=== PATIENT | male | born 1985 | race Caucasian/White ===

== ENCOUNTER 2021-07-10 21:03 | Emergency (ER) | payer OTHER, SELFPAY ==
[~2021-07-10 21:03] MED LIST: Iopamidol 370 76% 100 ML VIAL ONE
[2021-07-10 21:18] LABS: #Basophils 0.1 thou/uL (0.0-0.2); #Eosinphils 1.3 thou/uL (0.0-0.7); #Lymphocytes 1.9 thou/uL (1.20-3.40); #Monocytes 0.6 thou/uL (0.11-0.59); #Neutrophils 3.8 thou/uL (1.40-6.50); %Basophils 1.5 % (0.0-1.0); %Eosinophils 16.7 % (0.0-10.0); %Lymphocytes 24.8 % (21.0-51.0); %Monocytes 8.1 % (0.0-10.0); %Neutrophils 48.8 % (42.0-75.0); Hemoglobin 16.2 g/dL (14.0-18.0); Mean Corpuscular HGB CONC 32.5 g/dL (32.0-36.0); Mean Corpuscular Hemoglobin 29.3 pg (27.0-31.0); Mean Corpuscular Volume 90.1 fL (78.0-98.0); Platelet Count 225 thou/uL (130-400); RBC Distribution Width 12.6 % (11.5-14.5); Red Blood Cell (RBC) Count 5.55 mill/uL (4.70-6.10); White Blood Cell (WBC) Count 7.7 thou/uL (4.8-10.8)
[2021-07-10 21:25] LABS: PTT 30.4 sec (22.9-36.1); Prothrombin Time 12.9 sec (12.0-14.7)
[2021-07-10 21:35] LABS: ALT (SGPT) 18 U/L (8-55); AST (SGOT) 20 U/L (5-34); Albumin 4.4 g/dL (3.5-5.0); Alkaline Phosphatase 92 U/L (40-110); Anion Gap 12 mmol/L (10-20); BUN (Urea Nitrogen) 12 mg/dL (8.9-20.6); Bilirubin, Total 0.2 mg/dL (0.2-1.2); Calc. Creatinine Clearance 0 mL/min (70-130); Calcium 9.9 mg/dL (7.8-10.44); Carbon Dioxide 31 mmol/L (22-29); Chloride 103 mmol/L (98-107); Globulin 3.4 g/dL (2.4-3.5); Glucose 94 mg/dL (70-105); Protein, Total 7.8 g/dL (6.0-8.3); Sodium 142 mmol/L (136-145)
[2021-07-10] MEDS ORDERED: Acetaminophen 500 MG TAB ONE (22:06)
[2021-07-10] MEDS ORDERED: Benzonatate 100 MG CAP ONE (22:06)
== END 2021-07-10 22:25 ==
LOC: MADERS 21:03
DX: R05.9 Cough, unspecified (principal); R11.10 Vomiting, unspecified; R10.31 Right lower quadrant pain; F17.220 Nicotine dependence, chewing tobacco, uncomplicated; Z85.118 Personal history of other malignant neoplasm of bronchus and lung
CPT/HCPCS: 71260; 74177; 80053; 85025; 85610; 85730; Q9967